=== PATIENT | male | born 1980 ===

== ENCOUNTER 2024-04-22 21:01 | Emergency (ER) | payer OTHER ==
[~2024-04-22] VITALS: Ht 177.8 cm; Wt 101.3 kg
[2024-04-22] MEDS ORDERED: ZESTORETIC 20-1 EACH PO (21:14)
[2024-04-22] MEDS ORDERED: PHENYTOIN SODI300 MG PO (21:14)
[2024-04-22] MEDS ORDERED: PHENYTOIN SODIUM 100 MG CAP PO ONE (21:15)
[2024-04-22 21:27] VITALS: BP 102/63
== END 2024-04-22 21:27 | disposition home or self-care (01) ==
LOC: ED 21:01
DX: Z02.89 Encounter for other administrative examinations (principal); I10 Essential (primary) hypertension; Z88.5 Allergy status to narcotic agent